=== PATIENT | female | born 1995 | race Caucasian/White ===

== ENCOUNTER 2018-02-09 20:40 | Emergency (ER) | payer OTHER ==
[~2018-02-09] VITALS: Ht 160 cm; Wt 94.3 kg
[2018-02-09] MEDS ORDERED: AMIT25 PO (20:49)
[2018-02-09] MEDS ORDERED: ALBU90OI61 INH (20:49)
[2018-02-09 21:15] LABS: BASOPHILS ABSOLUTE AUTO 0.06 K/mm3 (0.00-0.23); BASOPHILS PERCENT AUTO 1 % (0-2); EOSINOPHILS ABSOLUTE AUTO 0.21 K/mm3 (0.00-0.68); EOSINOPHILS PERCENT AUTO 2 % (0-6); Hematocrit 38.2 % (33.0-51.0); Hemoglobin 12.8 g/dL (11.5-16.0); IMMATURE GRAN ABSOLUTE AUTO 0.04 K/mm3 (0.00-0.10); IMMATURE GRAN PERCENT AUTO 0 % (0-1); LYMPHOCYTES ABSOLUTE AUTO 3.77 K/mm3 (0.84-5.20); LYMPHOCYTES PERCENT AUTO 35 % (21-46); MONOCYTES ABSOLUTE AUTO 0.77 K/mm3 (0.16-1.47); MONOCYTES PERCENT AUTO 7 % (4-13); Mean Corpuscular HGB 27.1 pg (26.0-34.0); Mean Corpuscular HGB Conc 33.5 g/dL (31.5-36.5); Mean Corpuscular Volume 81 fL (80-100); Mean Platelet Volume 10.1 fL (9.1-12.4); NEUTROPHILS ABSOLUTE AUTO 6.07 K/mm3 (1.96-9.15); NEUTROPHILS PERCENT AUTO 56 % (41-73); Platelet Count 320 K/mm3 (150-400); RDW Coefficient Variation 12.5 % (11.7-14.2); RDW Standard Deviation 36.7 fL (35.1-46.3); Red Blood Cell Count 4.73 M/mm3 (3.80-5.20); White Blood Cell Count 10.92 K/mm3 (4.00-11.30)
[2018-02-09 21:42] LABS: Source, Urine Clean Catch
[2018-02-09 21:45] LABS: Bilirubin, Urine Neg (Neg); Blood, Urine Neg (Neg); Glucose Qualitative, Urine Neg (Neg); Ketones, Urine Neg (Neg); Leukocyte Esterase, Urine Neg (Neg); Nitrite, Urine Neg (Neg); Protein, Urine Neg (Neg); Specific Gravity, Urine 1.005 (1.003-1.022); Urobilinogen, Urine NORM (Normal)
[2018-02-09 21:50] LABS: Appearance, Urine Clear (Clear); Color, Urine Yellow (P-Yellow)
[2018-02-09 22:00] LABS: Alanine Aminotransfer (ALT/SGP 23 U/L (12-78); Albumin, Blood 3.6 g/dL (3.4-5.0); Alk Phos 83 U/L (50-136); Anion Gap 8 mmol/L (6-16); Aspartate Aminotrans (AST/SGOT 25 U/L (12-37); Bilirubin, Total 0.3 mg/dL (0.1-1.0); Blood Urea Nitrogen 15 mg/dL (8-24); Bun/Creatinine Ratio 25.4 (12.0-20.0); CO2, Blood 22 mmol/L (21-32); Calcium, Blood 8.5 mg/dL (8.5-10.1); Chloride, Blood 109 mmol/L (98-108); Creatinine, Blood 0.59 mg/dL (0.40-1.00); Globulin, Blood 3.7 g/dL (2.2-4.0); Glomerular Filtration Rate >60 (60-); Glucose, Blood 79 mg/dL (70-99); Sodium, Blood 139 mmol/L (136-145); Total Protein, Blood 7.3 g/dL (6.4-8.2)
[2018-02-09] MEDS ORDERED: Zofran Odt4 MG PO (23:07)
[2018-02-09] MEDS ORDERED: Protonix40 MG PO (23:07)
== END 2018-02-09 23:24 | disposition home or self-care (01) ==
LOC: ER 20:40
PROVIDERS: Emergency Medicine
DX: K80.50 Calculus of bile duct without cholangitis or cholecystitis without obstruction (principal); Z91.040 Latex allergy status; Z88.8 Allergy status to other drugs, medicaments and biological substances; Z79.899 Other long term (current) drug therapy
CPT/HCPCS: 80053; 81003; 83690; 84703; 85025; 96361; 96374; 99284; J3010; J7030

== ENCOUNTER 2018-03-17 13:32 | Emergency (ER) | payer OTHER ==
[~2018-03-17] VITALS: Ht 160 cm; Wt 108.9 kg
[~2018-03-17 13:32] MED LIST: ALBU90OI61 INH; AMIT25 PO; Protonix40 MG PO; Zofran Odt4 MG PO
[2018-03-17] MEDS ORDERED: TRAZ50 PO (13:40)
[2018-03-17] MEDS ORDERED: Amoxicillin500 MG PO (13:46)
[2018-03-17] MEDS ORDERED: NAPR550 PO (13:46)
[2018-03-17] MEDS ORDERED: PERIDEX15 ML MM (13:46)
== END 2018-03-17 13:52 | disposition home or self-care (01) ==
LOC: ER 13:32
DX: K08.89 Other specified disorders of teeth and supporting structures (principal); Z88.8 Allergy status to other drugs, medicaments and biological substances; Z91.040 Latex allergy status; Z79.899 Other long term (current) drug therapy; Z79.2 Long term (current) use of antibiotics
CPT/HCPCS: 99283

== ENCOUNTER 2018-10-25 07:28 | Day surgery (SDC) | payer OTHER ==
[~2018-10-25] VITALS: Ht 160 cm; Wt 126.1 kg
[~2018-10-25 07:28] MED LIST changes: +Amoxicillin500 MG PO; +NAPR550 PO; +PERIDEX15 ML MM; +TRAZ50 PO
[2018-10-25] MEDS ORDERED: Seroquel50 MG PO (08:55)
[2018-10-25] MEDS ORDERED: CLON.5 PO (08:55)
--- NOTE | 2018-10-25 11:32 | NUR ---
10/25/18 1132 Osman Kohler LATE ENTRY NARRATIVE TOOK OVER PATIENT CARE FOR [facility].KT PATIENT IS RESTING IN SDU RECLINER COMFORTABLY, MOTHER AND SON ARE AT CHAIRSIDE, PATIENT VSS, TOLERATING PO FLUIDS AND CRACKERS WELL. DISCHARGE INSTRUCTIONS REVIEWED WITH PATIENT AND MOTHER, BOTH DENY HAVING QUESTIONS AT THE MOMENT. NOTICED THE PATIENT GRIMACE AND MOVE FINGERS. ASSESSED PATIENT PAIN AT THIS TIME. PATIENT REPORTED 7/10 PAIN, PER MD ORDERS GAVE IV PAIN MEDICATION WELL PO PAIN MEDICATION BECAUSE SHE WAS TOLERATING PO JUICE AND CRACKERS WITHOUT ISSUE. REASSESSED PATIENT PAIN, PATIENT REPORTS 3/10 AND IS TOLERABLE. NURSE ASSISTED PATIENT TO HER RIDE HOME.
== END 2018-10-25 11:15 | disposition home or self-care (01) ==
LOC: ORSCSDS 07:28
PROVIDERS: Orthopaedic Surgery
PROC: 01N50ZZ Release Median Nerve, Open Approach (ICD-10-PCS; principal; 2018-10-25 09:15)
DX: G56.01 Carpal tunnel syndrome, right upper limb (principal); J45.909 Unspecified asthma, uncomplicated; F41.8 Other specified anxiety disorders; Z79.899 Other long term (current) drug therapy
CPT/HCPCS: J0690; J2250; J2405; J3010; J7120

== ENCOUNTER → 2018-11-24 | Outpatient (CLI) | payer OTHER ==
[~2018-11-24] MED LIST changes: +CLON.5 PO; +Seroquel50 MG PO
== END | disposition home or self-care (01) ==
LOC: LAB EV 12:42 → LAB SHORT 12:42
DX: R07.81 Pleurodynia (principal)
CPT/HCPCS: 85379

== ENCOUNTER → 2019-01-19 | Outpatient (CLI) | payer OTHER ==
[2019-01-19 13:36] LABS: BASOPHILS ABSOLUTE AUTO 0.08 K/mm3 (0.00-0.23); BASOPHILS PERCENT AUTO 1 % (0-2); EOSINOPHILS PERCENT AUTO 4 % (0-6); Hematocrit 40.9 % (33.0-51.0); Hemoglobin 13.3 g/dL (11.5-16.0); IMMATURE GRAN ABSOLUTE AUTO 0.17 K/mm3 (0.00-0.10); IMMATURE GRAN PERCENT AUTO 2 % (0-1); LYMPHOCYTES ABSOLUTE AUTO 2.94 K/mm3 (0.84-5.20); LYMPHOCYTES PERCENT AUTO 26 % (21-46); MONOCYTES ABSOLUTE AUTO 0.68 K/mm3 (0.16-1.47); MONOCYTES PERCENT AUTO 6 % (4-13); Mean Corpuscular HGB 26.2 pg (26.0-34.0); Mean Corpuscular HGB Conc 32.5 g/dL (31.5-36.5); Mean Corpuscular Volume 81 fL (80-100); Mean Platelet Volume 10.2 fL (9.1-12.4); NEUTROPHILS ABSOLUTE AUTO 6.85 K/mm3 (1.96-9.15); NEUTROPHILS PERCENT AUTO 62 % (41-73); Platelet Count 332 K/mm3 (150-400); RDW Coefficient Variation 13.2 % (11.7-14.2); Red Blood Cell Count 5.08 M/mm3 (3.80-5.20); White Blood Cell Count 11.12 K/mm3 (4.00-11.30)
[2019-01-19 13:47] LABS: Anion Gap 10 mmol/L (6-16); Blood Urea Nitrogen 16 mg/dL (8-24); Bun/Creatinine Ratio 19.8 (12.0-20.0); CO2, Blood 25 mmol/L (21-32); Calcium, Blood 9.2 mg/dL (8.5-10.1); Chloride, Blood 103 mmol/L (98-108); Creatinine, Blood 0.81 mg/dL (0.40-1.00); Glomerular Filtration Rate >60 (60-); Glucose, Blood 97 mg/dL (70-99); Potassium, Blood 4.6 mmol/L (3.5-5.5); Sodium, Blood 138 mmol/L (136-145)
== END | disposition home or self-care (01) ==
LOC: LAB EV 13:31 → LAB SHORT 13:31
PROVIDERS: Physician Assistant Surgical
DX: R51 Headache (principal)
CPT/HCPCS: 80048; 85025

== ENCOUNTER 2019-07-11 07:47 | Day surgery (SDC) | payer OTHER ==
[~2019-07-11] VITALS: Ht 160 cm; Wt 133.3 kg
--- NOTE | 2019-07-11 09:12 | NUR ---
07/11/19 0912 Cheyanne Michele BLOCK STARTED IN THE LEFT HAND BY [facility].JST WITH ONE ATTEMPT. PT TOLERATED BLOCK PLACEMENT WELL. PT HAD 5 IV START ON THE RIGHT ARM. TWO ATTEMPTS IN THE RIGHT HAND; UNSUCCESFULLY. ONE ATTEMPT IN THE RIGHT AC UNSUCCESSFULLY. TWO ATTEMPTS IN THE RIGHT FOREARM; ONE UNSUCCESSFULLY. IV IS NOW PATENT IN THE RIGHT FOREARM. PT TOLERATED ALL ATTEMPTS WELL.
--- NOTE | 2019-07-11 10:18 | NUR ---
07/11/19 1018 Winsome Renner REPORT GIVEN TO [facility] [place].
== END 2019-07-11 10:38 | disposition home or self-care (01) ==
LOC: ORSCSDS 07:47
PROVIDERS: Orthopaedic Surgery
PROC: 01N50ZZ Release Median Nerve, Open Approach (ICD-10-PCS; principal; 2019-07-11 09:30)
DX: G56.02 Carpal tunnel syndrome, left upper limb (principal); J45.909 Unspecified asthma, uncomplicated; K21.9 Gastro-esophageal reflux disease without esophagitis; E66.01 Morbid (severe) obesity due to excess calories; Z68.43 Body mass index [BMI] 50.0-59.9, adult; Z79.899 Other long term (current) drug therapy
CPT/HCPCS: 82947; J0690; J2250; J2405; J7120

== ENCOUNTER → 2019-12-07 | Outpatient (CLI) | payer OTHER | LOC: LAB SHORT 19:10 → LAB 19:10 | PROVIDERS: Registered Nurse Community Health | DX: Z12.4 Encounter for screening for malignant neoplasm of cervix (principal) | CPT/HCPCS: G0123 ==

== ENCOUNTER → 2021-04-05 | Outpatient (CLI) | payer OTHER ==
[2021-04-05 17:29] LABS: BASOPHILS PERCENT AUTO 1 % (0-2); EOSINOPHILS ABSOLUTE AUTO 0.23 K/mm3 (0.00-0.68); EOSINOPHILS PERCENT AUTO 2 % (0-6); Hematocrit 40.5 % (33.0-51.0); Hemoglobin 13.3 g/dL (11.5-16.0); IMMATURE GRAN ABSOLUTE AUTO 0.11 K/mm3 (0.00-0.10); IMMATURE GRAN PERCENT AUTO 1 % (0-1); LYMPHOCYTES ABSOLUTE AUTO 3.71 K/mm3 (0.84-5.20); LYMPHOCYTES PERCENT AUTO 32 % (21-46); MONOCYTES ABSOLUTE AUTO 0.75 K/mm3 (0.16-1.47); MONOCYTES PERCENT AUTO 7 % (4-13); Mean Corpuscular HGB 25.9 pg (26.0-34.0); Mean Corpuscular HGB Conc 32.8 g/dL (31.5-36.5); Mean Corpuscular Volume 79 fL (80-100); Mean Platelet Volume 10.6 fL (9.1-12.4); NEUTROPHILS PERCENT AUTO 58 % (41-73); Platelet Count 386 K/mm3 (150-400); RDW Coefficient Variation 13.4 % (11.7-14.2); RDW Standard Deviation 38.3 fL (35.1-46.3); Red Blood Cell Count 5.14 M/mm3 (3.80-5.20)
[2021-04-05 17:45] LABS: Alanine Aminotransfer (ALT/SGP 24 U/L (12-78); Albumin, Blood 3.8 g/dL (3.4-5.0); Albumin/Globulin Ratio 0.9 (0.8-1.8); Alk Phos 77 U/L (40-126); Anion Gap 14 mmol/L (6-16); Aspartate Aminotrans (AST/SGOT 12 U/L (12-37); Bilirubin, Total 0.3 mg/dL (0.1-1.0); Blood Urea Nitrogen 10 mg/dL (8-24); Bun/Creatinine Ratio 11.9 (12.0-20.0); CO2, Blood 19 mmol/L (21-32); Calcium, Blood 9.5 mg/dL (8.5-10.1); Chloride, Blood 105 mmol/L (98-108); Creatinine, Blood 0.84 mg/dL (0.40-1.00); Globulin, Blood 4.2 g/dL (2.2-4.0); Glomerular Filtration Rate >60 (60-); Glucose, Blood 87 mg/dL (70-99); Potassium, Blood 3.6 mmol/L (3.5-5.5); Sodium, Blood 138 mmol/L (136-145); Thyroid Stimulating Hormone 1.945 uIU/mL (0.360-4.800)
== END ==
LOC: LAB 16:48 → LAB SHORT 16:48
PROVIDERS: Physician Assistant
DX: R06.00 Dyspnea, unspecified (principal); R53.83 Other fatigue
CPT/HCPCS: 80053; 84443; 85025; 85379